=== PATIENT | female | born 1990 | race Caucasian/White ===

== ENCOUNTER 2018-01-30 23:22 | Emergency (ER) | payer OTHER ==
[2018-01-30 23:27] VITALS: BP 138/91
[2018-01-30] MEDS ORDERED: Clindamycin CAP* 150 MG PO ONE (23:54)
--- NOTE | 2018-01-30 23:57 | ED ---
Skin Complaint - HPI Summary HPI Summary: This patient is a 27 year old F presenting to [facility] with a chief complaint of swollen face after popping a zit since 23:00 01/30/18. The patient rates the pain 1/10 in severity. Patient denies fever. Patient denies being allergic to any medications or antibiotics. She takes control. - History of Current Complaint Chief Complaint: EDRashSkinAbscess Time Seen by Provider: 01/30/18 23:51 Stated Complaint: SWOLLEN FACE Hx Obtained From: Patient Hx Last Menstrual Period: 3 weeks ago Onset/Duration: Started Hours Ago, Still Present Timing: Constant Onset Severity: Mild Current Severity: Mild Pain Intensity: 1 Pain Scale Used: 0-10 Numeric Skin Location: Face Character: Swelling Associated Signs & Symptoms: Fever - Denies - Allergy/Home Medications Allergies/Adverse Reactions: Allergies Allergy/AdvReac Type Severity Reaction Status Date / Time ENVIRONMENTAL/SEASONAL Allergy WATERY Uncoded 11/12/15 15:40 HAYFEVER EYES, RUNNY NOSE PMH/Surg Hx/FS Hx/Imm Hx Endocrine/Hematology History: Reports: Hx Anemia - IN HIGH SCHOOL, NOT AN ISSUE SINCE Denies: Hx Diabetes, Hx Thyroid Disease Cardiovascular History: Denies: Hx Hypertension, Hx Pacemaker/ICD Respiratory History: Reports: Hx Asthma - exercised induced Denies: Hx Chronic Obstructive Pulmonary Disease (COPD) GI History: Denies: Hx Ulcer Sensory History: Reports: Hx Contacts or Glasses - CONTACTS, WILL WEAR GLASSES DAY OF SURGERY Denies: Hx Hearing Aid Opthamlomology History: Reports: Hx Contacts or Glasses - CONTACTS, WILL WEAR GLASSES DAY OF SURGERY Psychiatric History: Reports: Hx Anxiety - ON MED, Hx Depression - ON MED Denies: Hx Panic Disorder - Surgical History Surgery Procedure, Year, and Place: 12/2006 WISDOM TEETH REMOVAL, [facility]. 2012 REPAIR FRACTURED NOSE, [facility]. 01/25 RT THUMB SURGERY, [facility] [place] Hx Anesthesia Reactions: Yes - NOVACAINE DOES NOT WORK WITH TEETH EXTRACTION Infectious Disease History: No Infectious Disease History: Denies: Hx Clostridium Difficile, Hx Hepatitis, Hx Human Immunodeficiency Virus (HIV), Traveled Outside the in Last 30 Days - Family History Known Family History: Negative: Blood Disorder - Social History Occupation: Unemployed Lives: With Family Alcohol Use: Weekly Substance Use Type: Reports: None Smoking Status (MU): Never Smoked Tobacco Review of Systems Negative: Fever Positive: Other - Swelling on her face All Other Systems Reviewed And Are Negative: Yes Physical Exam - Summary Physical Exam Summary: Appearance: Well appearing, no pain distress Skin: warm, dry, reflects adequate perfusion Head/face: Bridge of nose is swollen, ruptured comedone (bridge of nose), mild redness. No adenopathy. Eyes: EOMI, KATH ENT: mucous membranes moist Neck: supple, non-tender Respiratory: CTA, breath sounds present Cardiovascular: RRR, pulses symmetrical Abdomen: non-tender, soft Bowel Sounds: present Musculoskeletal: normal, strength/ROM intact Neuro: normal, sensory motor intact, A&Ox3 Triage Information Reviewed: Yes Vital Signs On Initial Exam: Initial Vitals Temp Pulse Resp BP Pulse Ox 97.3 F 82 20 138/91 98 01/30/18 23:22 01/30/18 23:22 01/30/18 23:22 01/30/18 23:22 01/30/18 23:22 Vital Signs Reviewed: Yes Diagnostics - Vital Signs Vital Signs Temp Pulse Resp BP Pulse Ox 01/30/18 23:22 97.3 F 82 20 138/91 98 - Laboratory Lab Statement: Any lab studies that have been ordered have been reviewed, and results considered in the medical decision making process. Course/Dx - Course Course Of Treatment: Nurse's note reviewed. Patient with minor swelling of the bridge of the nose with redness and no tenderness with a ruptured comedone. Clindamycin given here and will give a short course. Warm compresses at home. No evidence for preseptal or septal cellulitis. - Diagnoses Provider Diagnoses: Facial cellulitis Discharge - Sign-Out/Discharge Documenting (check all that apply): Patient Departure - D/C - Discharge Plan Condition: Improved Disposition: HOME Prescriptions: Clindamycin HCl 300 mg PO TID #14 capsule Patient Education Materials: Cellulitis (ED) Referrals: Sofia Christiansen MD [Primary Care Provider] - Additional Instructions: Warm compresses. Return with fever, expanding redness, worse, new symptoms or other concerns. - Billing Disposition and Condition Condition: IMPROVED Disposition: Home - Attestation Statements Document Initiated by Scribe: Yes Documenting Scribe: Daniel Abrams Provider For Whom Scribe is Documenting (Include Credential): Serafin Ames MD Scribe Attestation: Daniel Crowder, scribed for Serafin Ames MD on 01/31/18 at 0044. Scribe Documentation Reviewed: Yes Provider Attestation: The documentation as recorded by the scribe, Daniel Abrams accurately reflects the service I personally performed and the decisions made by me, Serafin Ames MD Status of Scribe Document: Viewed
== END 2018-01-31 00:03 | disposition home or self-care (01) ==
LOC: ED 23:22
DX: L03.211 Cellulitis of face (principal); J45.990 Exercise induced bronchospasm; F32.9 Major depressive disorder, single episode, unspecified; F41.9 Anxiety disorder, unspecified
CPT/HCPCS: 99282; A9270-GY